=== PATIENT | female | born 1945 | race Caucasian/White ===

== ENCOUNTER 2016-06-23 08:09 | Emergency (ER) | payer MEDICARE, BC ==
[~2016-06-23] VITALS: Ht 167.6 cm; Wt 67.6 kg
[2016-06-23 08:20] VITALS: BP 126/77
== END 2016-06-23 09:17 | disposition home or self-care (01) ==
LOC: ER 08:11
DX: T63.301A Toxic effect of unspecified spider venom, accidental (unintentional), initial encounter (principal); Y92.9 Unspecified place or not applicable; F17.200 Nicotine dependence, unspecified, uncomplicated; Z88.0 Allergy status to penicillin; Z88.2 Allergy status to sulfonamides; Z88.1 Allergy status to other antibiotic agents; Z88.8 Allergy status to other drugs, medicaments and biological substances
CPT/HCPCS: A4606; Z7502; Z7610

== ENCOUNTER 2023-04-08 16:01 | Emergency (ER) | payer MEDICARE, BC ==
[~2023-04-08] VITALS: Ht 167.6 cm; Wt 73.0 kg
[2023-04-08 18:58] VITALS: BP 140/90; TEMP 98; O2SAT 100
== END 2023-04-08 18:40 | disposition home or self-care (01) ==
LOC: ER 16:14
DX: M79.662 Pain in left lower leg (principal); M79.89 Other specified soft tissue disorders; Z88.0 Allergy status to penicillin; Z88.2 Allergy status to sulfonamides; Z88.8 Allergy status to other drugs, medicaments and biological substances
CPT/HCPCS: 93971-TC

== ENCOUNTER 2023-11-04 11:43 | Emergency (ER) | payer MEDICARE, BC ==
[~2023-11-04] VITALS: Ht 167.6 cm; Wt 72.6 kg
[2023-11-04] MEDS ORDERED: MECLIZINE HCL 12.5 MG TABLET ONE (12:22)
[2023-11-04] MEDS: IV NS 0.9% 500 ML BAG IV ONE (13:00)
[2023-11-04] MEDS: MECLIZINE HCL 12.5 MG TABLET PO ONE (13:00)
[2023-11-04 13:48] LABS: BASOPHILS % (AUTO) 0.5 % (0.0-2.0); EOSINOPHILS # (AUTO) 0.1 K/uL (0.0-0.7); EOSINOPHILS % (AUTO) 1.4 % (0.0-6.0); HEMATOCRIT 43 % (33-45); HEMOGLOBIN 14.3 g/dL (11.5-14.8); LYMPHOCYTES # (AUTO) 1.5 K/uL (0.8-4.8); LYMPHOCYTES % (AUTO) 22.4 % (20.0-44.0); MEAN CORPUSCULAR HEMOGLOBIN 31 PG (26.0-33.0); MEAN CORPUSCULAR HGB CONC 34 g/dl (31.0-36.0); MEAN CORPUSCULAR VOLUME 92 fL (82-100); MONOCYTES # (AUTO) 0.5 K/uL (0.1-1.30); MONOCYTES % (AUTO) 8.2 % (2.0-12.0); NEUTROPHILS # (AUTO) 4.4 K/uL (1.8-8.9); NEUTROPHILS % (AUTO) 67.5 % (43.0-81.0); PLATELET COUNT (AUTO) 92 K/uL (150-450); RED BLOOD CELL COUNT(AUTO) 4.66 MIL/uL (4.0-5.2); RED CELL DISTRIBUTION WIDTH 13.9 % (11.5-15.0); WHITE BLOOD COUNT (AUTO) 6.6 K/uL (4.3-11.0)
[2023-11-04 13:55] LABS: BASOPHILS % (MANUAL) 0 % (0.0-2.0); EOSINOPHILS % (MANUAL) 3 % (0-4); LYMPHOCYTES % (MANUAL) 24 % (16-48); MONOCYTES % (MANUAL) 11 % (0-11.0); NEUTROPHILS % (MANUAL) 62 (42-76); PLATELET ESTIMATE DECREASED
[2023-11-04] MEDS ORDERED: MECL-182 PO (14:24)
[2023-11-04 14:37] LABS: CALCIUM, SERUM 9.2 mg/dL (8.5-10.1); CARBON DIOXIDE 29 mmol/L (21-32); CHLORIDE 109 mmol/L (98-107); GLUCOSE 92 mg/dL (74-106); POTASSIUM 4.9 mmol/L (3.5-5.1); SODIUM SERUM 142 mmol/L (136-145); UREA NITROGEN, BLOOD 25 mg/dL (7-18)
[2023-11-04 14:54] VITALS: BP 112/67; TEMP 98.4; O2SAT 98
== END 2023-11-04 14:54 | disposition home or self-care (01) ==
LOC: ER 11:46
DX: H81.399 Other peripheral vertigo, unspecified ear (principal); M19.90 Unspecified osteoarthritis, unspecified site; Z86.79 Personal history of other diseases of the circulatory system; Z90.49 Acquired absence of other specified parts of digestive tract; Z90.89 Acquired absence of other organs; Z88.0 Allergy status to penicillin; Z88.2 Allergy status to sulfonamides; Z88.8 Allergy status to other drugs, medicaments and biological substances; Z91.040 Latex allergy status
CPT/HCPCS: 99284; 70450; 93005; 85025; 80048; 36415; 85007; J8597; J7040

== ENCOUNTER 2024-02-10 11:16 | Emergency (ER) | payer MEDICARE, BC ==
[~2024-02-10] VITALS: Ht 167.6 cm; Wt 72.6 kg
[~2024-02-10 11:16] MED LIST: MECL-182 PO
[2024-02-10 12:44] VITALS: BP 147/78; TEMP 98.1; O2SAT 99
== END 2024-02-10 12:45 | disposition home or self-care (01) ==
LOC: ER 11:20
DX: S00.83XA Contusion of other part of head, initial encounter (principal); D69.3 Immune thrombocytopenic purpura; K58.9 Irritable bowel syndrome, unspecified; M19.90 Unspecified osteoarthritis, unspecified site; Z88.1 Allergy status to other antibiotic agents; Z88.0 Allergy status to penicillin; Z88.2 Allergy status to sulfonamides; Z88.6 Allergy status to analgesic agent; Z88.8 Allergy status to other drugs, medicaments and biological substances; Z90.49 Acquired absence of other specified parts of digestive tract; Z90.89 Acquired absence of other organs; Z91.041 Radiographic dye allergy status; W22.01XA Walked into wall, initial encounter; Y93.89 Activity, other specified; Y92.89 Other specified places as the place of occurrence of the external cause; Y99.8 Other external cause status
CPT/HCPCS: 70450-TC